=== PATIENT | female | born 1955 | race Caucasian/White ===

== ENCOUNTER 2018-05-17 14:43 | Emergency (ER) | payer SELFPAY ==
[~2018-05-17] VITALS: Ht 160 cm; Wt 70.0 kg
[2018-05-17 15:00] VITALS: BP 127/62; PULSE 64; RESP 16; TEMP 98.4; O2SAT 96
[2018-05-17] MEDS ORDERED: LEVO75TA3 PO (16:19)
[2018-05-17] MEDS ORDERED: TETANUS/DIPHTHERIA TOXOID ADULT 0.5 ML VIAL IM ONE (16:30)
--- NOTE | 2018-05-17 16:30 | PD ---
HPI Chief Complaint: Injury Time Seen by Provider: 16:21 Travel History International Travel<30 days: No Contact w/Intl Traveler<30days: No Traveled to known affect area: No History of Present Illness HPI 63-year-old female presents to the emergency room for evaluation of left anterior knee pain after trip and fall just prior to arrival. Patient was walking up the stairs when she tripped on the last stair and fell forward landing on her left knee. She scraped her knee against the stair. She has been able to walk but with pain. Pain is localized to the left, distal, anterior knee and radiates into her thigh and flores. Worse with range of motion or when she pushes on it. She has not taken anything for symptoms. She applied ice without relief. Denies paresthesias. Unknown last tetanus. PFSH Past Medical History Medical other: Yes (BREAST CA 2007) Thyroid Disease: Yes Tetanus Vaccination: Unknown ?: Not Past Surgical History Other Surgery: Yes (THYROIDECTOMY) Social History Alcohol Use: No Tobacco Use: No Substance Use: No Allergies-Medications (Allergen,Severity, Reaction): Coded Allergies: No Known Allergies (Unverified , 05/17/18) Reported Meds & Prescriptions Reported Meds & Active Scripts Active Reported Levothyroxine (Levothyroxine Sodium) 75 Mcg Tab 75 Mcg PO DAILY Review of Systems Except as stated in HPI: all other systems reviewed are Neg Physical Exam Narrative GENERAL: Well-nourished, well-developed female no acute distress. Afebrile. SKIN: Focused skin assessment warm/dry. Superficial abrasion over the left anterior knee. HEAD: Normocephalic. EYES: No scleral icterus. No injection or drainage. NECK: Supple, trachea midline. No JVD or lymphadenopathy. CARDIOVASCULAR: Regular rate and rhythm without murmurs, gallops, or rubs. RESPIRATORY: Breath sounds equal bilaterally. No accessory muscle use. GASTROINTESTINAL: Abdomen soft, non-tender, nondistended. MUSCULOSKELETAL: No cyanosis. Mild to moderate edema of the left anterior, distal knee. Patient has full extension and can flex her knee to about 135. 2 + dorsalis pedis pulse. Data Data Last Documented VS Vital Signs Date Time Temp Pulse Resp B/P (MAP) Pulse Ox O2 Delivery O2 Flow Rate FiO2 05/17/18 15:00 98.4 64 16 127/62 (83) 96 Orders Orders Knee, Complete (4vws) (05/17/18 ) Tetanus/Diphtheria Tox Adult (Tetanus/Di (05/17/18 16:30) MDM Medical Decision Making Medical Screen Exam Complete: Yes Emergency Medical Condition: Yes Medical Record Reviewed: Yes Differential Diagnosis Laceration, contusion, abrasion, knee effusion, fracture, sprain, strain Narrative Course 63-year-old otherwise healthy female presents to the emergency room for evaluation of left knee pain after trip and fall just prior to arrival. Patient tripped while walking up the stairs. Landed on her left knee. Has had pain with the relation since then. Physical exam reveals mild ecchymosis and superficial abrasion of the left anterior knee. There is associated, mild edema. Left lower extremity is neurovascular intact with 2+ dorsalis pedis pulse. Patient has somewhat limited range of motion secondary to pain. X-ray is negative. This is contusion. Patient reassured. Wound was dressed and patient was placed in Sergei wrap. Told to take Tylenol or Motrin for pain. Told to follow-up with primary care physician or return for worsening symptoms. She understands and agrees to plan. Diagnosis Primary Impression: Contusion of left knee Qualified Codes: S80.02XA - Contusion of left knee, initial encounter Referrals: Primary Care Physician Additional Instructions: Keep wound clean and dry. Apply triple antibiotic ointment daily. Use Sergei wrap as needed for pain. Take ibuprofen with food as directed, as needed for pain. Apply ice to the affected area for 20 minutes at a time, as needed for pain and swelling. Follow-up with a primary care physician. Return to the emergency room for worsening symptoms. Med/Other Pt SpecificInfo: Prescription(s) given Disposition: 01 DISCHARGE HOME Condition: Stable Abida Santo May 17, 2018 16:30
--- NOTE | 2018-05-17 16:58 | RADRPT ---
EXAM DATE: 05/17/2018 4:55 PM EDT AGE/SEX: 63 years / Female INDICATIONS: Fall swelling, and laceration to left knee. CLINICAL DATA: This is the patient's initial encounter. Patient reports that signs and symptoms have been present for 1 day and indicates a pain score of 0/10. MEDICAL/SURGICAL HISTORY: None. None. COMPARISON: No prior exams available for comparison. FINDINGS: Bony structures are intact and in normal alignment. Joints are intact without dislocation or signifi cant arthropathy. Osseous density is normal. Soft tissues are unremarkable. No radiopaque foreign bodies seen. No joint effusion. CONCLUSION: No acute fracture or joint dislocation. Electronically signed by: Tray Nelson MD 05/17/2018 4:56 PM EDT
== END 2018-05-17 17:37 | disposition home or self-care (01) ==
LOC: NEPK 14:43
DX: S80.02XA Contusion of left knee, initial encounter (principal); S80.212A Abrasion, left knee, initial encounter; W10.9XXA Fall (on) (from) unspecified stairs and steps, initial encounter; Z79.899 Other long term (current) drug therapy; Z23 Encounter for immunization
CPT/HCPCS: 73564; 90471; 90714